=== PATIENT | male | born 1980 | race Caucasian/White ===

== ENCOUNTER 2018-02-03 06:36 | Emergency (ER) | payer BC ==
[2018-02-03] MEDS ORDERED: Sodium Chloride 0.9% 2.5 ML Syringe FLUSH PRN (07:08)
[2018-02-03] MEDS ORDERED: Ketorolac 30 MG/ML SDV IVPUSH ONE (07:08)
[2018-02-03] MEDS ORDERED: Sodium Chloride 0.9% 1,000 ML IV ONE (07:08)
[2018-02-03] MEDS ORDERED: Sodium Chloride 0.9% 10 ML Syringe FLUSH PRN (07:08)
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
[2018-02-03 07:40] LABS: CHLORIDE,CL 103 mmol/L (98-107); SODIUM,NA 141 mmol/L (136-148)
[2018-02-03] MEDS ORDERED: Iopamidol 755 MG/ML 500 ML Multipack Bottle IVPUSH STA (07:41)
[2018-02-03 09:38] VITALS: BP 130/82
--- NOTE | 2018-02-03 13:14 | CT ---
EXAM DATE: 02/03/18 PATIENT'S AGE: 37 Patient: EMILY ALBARADO Facility: [place], [place] Site . Site : [id number] Study: CT Abdomen/Pelvis WITH [id number]/26/2018 7:50:35 AM Ordering Physician: Doctor Newton Final Report: INDICATION: Left upper quadrant abdominal pain for 2 weeks. TECHNIQUE: CT of abdomen and pelvis performed after IV injection of 100 mL of Isovue-370. COMPARISON: CT 04/15/2016. FINDINGS: Mild opacity in the lung bases some which is hazy and some which is platelike mild lymph node prominence in the portacaval region. Small amount of fluid in the lower pelvis anteriorly likely related to prior surgery is stable. Small periumbilical hernia containing only fat is new. Remainder negative. Impression : No acute disease in abdomen or pelvis. Small new periumbilical hernia containing only fat. Small amount of stable fluid in the left lower pelvis anteriorly likely related to prior surgery or procedure. Please note that all CT scans at this facility use dose modulation, iterative reconstruction, and/or weight-based dosing when appropriate to reduce radiation dose to as low as reasonably achievable. Dictated by Maycol Green MD @ Feb 03 2018 7:59AM (Electronic Signature) Report Signed by Proxy. MTDD
== END 2018-02-03 08:40 | disposition home or self-care (01) ==
LOC: MW.ED 06:36
DX: K85.80 Other acute pancreatitis without necrosis or infection (principal); I10 Essential (primary) hypertension; Z79.899 Other long term (current) drug therapy
CPT/HCPCS: 36415; 74177; 80053; 81001; 82150; 83690; 85025; 96360; 99284; J7040; Q9967

== ENCOUNTER 2021-10-17 17:55 | Emergency (ER) | payer BC ==
--- NOTE | 2021-10-17 18:41 | EDM.PDOC ---
ED HPI GENERAL MEDICAL PROBLEM - General Chief Complaint: Abdominal Pain Stated Complaint: POSSIBLE HERNIA Time Seen by Provider: 10/17/21 18:26 Source of Information: Reports: Patient History Limitations: Reports: No Limitations - History of Present Illness INITIAL COMMENTS - FREE TEXT/NARRATIVE: HISTORY AND PHYSICAL: History of present illness: Patient is a 41-year-old male who presents to the emergency room with complaints of an umbilical hernia. He states he has noticed it "popped out before" but had gone in on its own shortly after. Today he noticed some umbilical pain and had noticed the hernia. States it did make him feel slightly nauseated. He did not attempt to manually push it back in. Decided to come to the emergency room for evaluation. Patient denies any fever, chills, headache, change in vision, syncope or near syncope. Denies any chest pain, back pain, shortness of breath or cough. Denies any vomiting, diarrhea, constipation or dysuria. Has not noted any blood in urine or stool. Patient has been eating and drinking appropriately. No recent travel or sick contacts. Review of systems: As per history of present illness and below otherwise all systems reviewed and negative. Past medical history: As per history of present illness and as reviewed below otherwise noncontributory. Surgical history: As per history of present illness and as reviewed below otherwise noncontributory. Social history: See social history for further information Family history: As per history of present illness and as reviewed below otherwise noncontributo ry. Physical exam: General: Well developed and well nourished. Alert and orientated x 3. Nontoxic in appearance and in no acute distress. Vital signs are stable and have been reviewed by me. Nursing notes were reviewed. HEENT: Atraumatic, normocephalic, pupils equal and reactive bilaterally, negative for conjunctival pallor or scleral icterus, mucous membranes moist, TMs normal bilaterally, throat clear, neck supple, nontender, trachea midline. No drooling or trismus noted. No meningeal signs. No hot potato voice noted. Lungs: Clear to auscultation bilaterally. No wheezes, rales, or rhonchi. Chest nontender. Normal work of breathing, no accessory muscles used. Heart: S1S2, regular rate and rhythm without overt murmur, gallops, or rubs. No JVD. No peripheral edema Abdomen: Soft, nondistended, tenderness noted at umbilical hernia, slight protrusion approximately 9 mm at the umbilicus. Skin is pink and warm. Normoactive bowel sounds. Negative for masses or costovertebral tenderness. Skin: Intact, warm, dry. No lesions or rashes noted. Hematologic: No petechiae or purpra. Mucosa appropriate color and normal nail bed color and refill. Extremities: Atraumatic, moves all extremities per self without difficulty or deficits, negative for cords or calf pain. Neurovascular unremarkable. Neuro: Awake, alert, oriented. Cranial nerves II through XII unremarkable. Cerebellum unremarkable. Motor and sensory unremarkable throughout. Exam nonfocal. Psychiatric: Mood and affect are appropriate. Normal thought process. Answering questions appropriately. Please note that the patient was seen and evaluated during the 2019 SARS-CoV-2 novel coronavirus pandemic period. Community viral transmission is ongoing at time of this encounter and the emergency department is operating under pandemic response procedures. Medical Decision Making: I did apply gentle pressure to the umbilical hernia and it immediately and easily reduced. Patient states he felt immediate relief. I did allow him to sit for 10 to 15 minutes. We did discuss doing lab work and/or imaging, at this time since his symptoms have resolved he would prefer to follow-up with general surgery as this is not needing to be immediately fixed. I did show him how to do this at home. I have talked with the patient about today's findings, in addition to providing specific details for plan of care. Reassessment at the ti me of disposition demonstrates that the patient is in no acute distress. If he is unable to reduce the hernia or he has worsening symptoms I would like him to return to the emergency room for reevaluation. The patient is stable for discharge, counseling was provided and we discussed in great detail signs and symptoms that would prompt them to return to the Emergency Department. Medication, follow up and supportive care measures were reviewed and discussed. Voices understanding and is agreeable to plan of care. Denies any further questions or concerns at this time. Diagnostics: None Therapeutics: Reduction Prescription: None Impression: Umbilical hernia, reduced Plan: 1. You were evaluated today on an emergent basis. Your umbilical hernia was easily really reduced. If this should happen in the future please gently apply pressure and work until it is reduced. If you are unable to reduce it yourself you do need to be evaluated immediately. I would like you to set up an appoint ment with general surgery as this should get repaired at some point. 2. Avoid any heavy straining or lifting that can cause the hernia. You can alternate Tylenol and ibuprofen as needed for pain and fever management. 3. If your symptoms should worsen, new symptoms develop or any of the signs and symptoms we discussed should arise please return to the emergency room or call 911 (if needed). Definitive disposition and diagnosis as appropriate pending reevaluation and review of above. Abdominal Pain Score (Numeric/FACES): 6 - Related Data Allergies Allergy/AdvReac Type Severity Reaction Status Date / Time No Known Allergies Allergy Verified 10/17/21 18:29 Home Meds: Home Meds Fenofibrate,Micronized [Fenofibrate] 134 mg PO DAILY 02/03/18 [History] Lisinopril 10 mg PO DAILY 02/03/18 [History] Past Medical History HEENT History: Reports: None Cardiovascular History: Reports: High Cholesterol, Hypertension Respiratory History: Reports: None Genitourinary History: Reports: None Musculoskeletal History: Reports: None Neurological History: Reports: None Psychiatric History: Reports: None Endocrine/Metabolic History: Reports: None Dermatologic History: Reports: None - Infectious Disease History Infectious Disease History: Reports: Chicken Pox - Past Surgical History GI Surgical History: Reports: Hernia, Abdominal, Hernia, Inguinal Male Surgical History: Reports: None Social & Family History - Family History Family Medical History: No Pertinent Family History - Tobacco Use Second Hand Smoke Exposure: No - Caffeine Use Caffeine Use: Reports: None - Recreational Drug Use Recreational Drug Use: No ED ROS GENERAL - Review of Systems Review Of Systems: Comprehensive ROS is negative, except as noted in HPI. ED EXAM, GI/ABD - Physical Exam Exam: See Below (See dictation) Course - Vital Signs Last Recorded V/S: Last Vital Signs Temp 97.6 F 10/17/21 18:25 Pulse 96 10/17/21 18:25 Resp 20 10/17/21 18:25 BP 151/85 H 10/17/21 18:25 Pulse Ox 96 10/17/21 18:25 Departure - Departure Time of Disposition: 18:40 Disposition: Home, Self-Care 01 Clinical Impression: Umbilical hernia - Discharge Information Instructions: Umbilical Hernia, Adult Forms: ED Department Discharge Additional Instructions: The following information is given to patients seen in the emergency department who are being discharged to home. This information is to outline your options for follow-up care. We provide all patients seen in our emergency department with a follow-up referral. The need for follow-up, as well as the timing and circumstances, are variable depending upon the specifics of your emergency department visit. If you don't have a primary care physician on staff, we will provide you with a referral. We always advise you to contact your personal physician following an emergency department visit to inform them of the circumstance of the visit and for follow-up with them and/or the need for any referrals to a consulting specialist. The emergency department will also refer you to a specialist when appropriate. This referral assures that you have the opportunity for follow-up care with a specialist. All of these measure are taken in an effort to provide you with optimal care, which includes your follow-up. Under all circumstances we always encourage you to contact your private physician who remains a resource for coordinating your care. When calling for follow-up care, please make the office aware that this follow-up is from your recent emergency room visit. If for any reason you are refused follow-up, please contact the [facility] Emergency Department at and asked to speak to the emergency department charge nurse. [facility] [address] [place] [address] [id number] [address] [address] Thank you for choosing the [facility] emergency department in [place] for your medical needs today. It was a pleasure caring for you. Today you were seen in the emergency department for umbilical hernia. 1. You were evaluated today on an emergent basis. Your umbilical hernia was easily really reduced. If this should happen in the future please gently apply pressure and work until it is reduced. If you are unable to reduce it yourself you do need to be evaluated immediately. I would like you to set up an appointment with general surgery as this should get repaired at some point. 2. Avoid any heavy straining or lifting that can cause the hernia. You can alternate Tylenol and ibuprofen as needed for pain and fever management. 3. If your symptoms should worsen, new symptoms develop or any of the signs and symptoms we discussed should arise please return to the emergency room or call 911 (if needed). Sepsis Event Note (ED) - Evaluation Sepsis Screening Result: No Definite Risk - Focused Exam Vital Signs: Vital Signs Temp Pulse Resp BP Pulse Ox 10/17/21 18:25 97.6 F 96 20 151/85 H 96
[2021-10-17 19:01] VITALS: BP 132/80; PULSE 78
== END 2021-10-17 18:54 | disposition home or self-care (01) ==
LOC: MW.ED 17:55
DX: K42.9 Umbilical hernia without obstruction or gangrene (principal); E78.00 Pure hypercholesterolemia, unspecified; I10 Essential (primary) hypertension; Z79.899 Other long term (current) drug therapy
CPT/HCPCS: 99283

== ENCOUNTER 2021-12-22 06:29 | Day surgery (SDC) | payer BC ==
[~2021-12-22 06:29] MED LIST: Albuterol 0.083% 2.5 MG/3 ML Neb Soln NEB PRN; HYDROmorphone 1 MG/ML Syringe IVPUSH PRN; Lactated Ringers 1,000 ML IV SCH; Metoclopramide 10 MG/2 ML SDV IVPUSH PRN; Morphine 4 MG/ML VIAL IVPUSH PRN; Naloxone 0.4 MG/ML SDV IVPUSH PRN; Ondansetron 4 MG/2 ML SDV IVPUSH PRN; ceFAZolin 2 GM in Premix Bag 1 BAG IV SCH; fentaNYL 100 MCG/2 ML SDV IVPUSH PRN
[2021-12-22] MEDS ORDERED: Propofol 200 MG/20 ML SDV ONE (06:47)
[2021-12-22] MEDS ORDERED: Midazolam 1 MG/ML 2 ML SDV ONE (06:48)
[2021-12-22] MEDS ORDERED: fentaNYL 250 MCG/5 ML SDV ONE (06:48)
[2021-12-22] MEDS ORDERED: Ondansetron 4 MG/2 ML SDV ONE (07:13)
[2021-12-22] MEDS ORDERED: Dexamethasone 4 MG/ML 5 ML MDV ONE (07:13)
[2021-12-22] MEDS ORDERED: Bupivacaine 0.5% 30 ML SDV ONE (07:20)
[2021-12-22] MEDS ORDERED: ceFAZolin 1 GM Vial ONE (07:20)
[2021-12-22] MEDS ORDERED: Ropivacaine 0.5% 5 MG/ML 30 ML SDV ONE (07:29)
[2021-12-22] MEDS ORDERED: Rocuronium Bromide 50 MG/5 ML Syringe ONE (07:33)
[2021-12-22] MEDS ORDERED: Sugammadex Sodium 200 MG/2 ML VIAL ONE (07:33)
[2021-12-22] MEDS ORDERED: Acetaminophen/HYDROcodone 325-5 MG Tab PO PRN (08:53)
[2021-12-22] MEDS ORDERED: Ondansetron 4 MG/2 ML SDV IVPUSH PRN (08:53)
[2021-12-22] MEDS ORDERED: Morphine 4 MG/ML VIAL IVPUSH PRN (08:53)
[2021-12-22] MEDS ORDERED: Lactated Ringers 1,000 ML IV SCH (09:00)
[2021-12-22 10:08] VITALS: BP 128/74; PULSE 78
== END 2021-12-22 10:56 | disposition home or self-care (01) ==
LOC: MW.SDS 06:29
PROVIDERS: ATTEND Surgery
DX: K42.0 Umbilical hernia with obstruction, without gangrene (principal); I10 Essential (primary) hypertension; E78.00 Pure hypercholesterolemia, unspecified; G47.33 Obstructive sleep apnea (adult) (pediatric); E55.9 Vitamin D deficiency, unspecified; Z72.89 Other problems related to lifestyle; Z79.899 Other long term (current) drug therapy; Z98.890 Other specified postprocedural states; Z87.891 Personal history of nicotine dependence; Z91.018 Allergy to other foods
CPT/HCPCS: 49587; A9270; J0131; J0690; J1100; J2250; J2704; J2795; J3010; J3490; J7120; 00750; 64488; J2405

== ENCOUNTER 2023-03-13 02:11 | Emergency (ER) | payer BC ==
[2023-03-13] MEDS ORDERED: Erythromycin Base 0.5% Ophth Oint 1 GM Tube EYEBOTH ONE (02:28)
[2023-03-13 02:41] VITALS: BP 147/88; PULSE 71
== END 2023-03-13 02:40 | disposition home or self-care (01) ==
LOC: MW.ED 02:11
DX: H10.9 Unspecified conjunctivitis (principal); E78.00 Pure hypercholesterolemia, unspecified; I10 Essential (primary) hypertension; Z91.018 Allergy to other foods; Z79.899 Other long term (current) drug therapy
CPT/HCPCS: 99282; A9270

== ENCOUNTER 2023-11-08 06:29 | Day surgery (SDC) | payer BC ==
[~2023-11-08 06:29] MED LIST changes: -Albuterol 0.083% 2.5 MG/3 ML Neb Soln NEB PRN; -HYDROmorphone 1 MG/ML Syringe IVPUSH PRN; -Metoclopramide 10 MG/2 ML SDV IVPUSH PRN; -Morphine 4 MG/ML VIAL IVPUSH PRN; -Naloxone 0.4 MG/ML SDV IVPUSH PRN; -Ondansetron 4 MG/2 ML SDV IVPUSH PRN; -ceFAZolin 2 GM in Premix Bag 1 BAG IV SCH; +ceFAZolin 2 GM in Sodium Chloride 0.9% 50 ML IV ONE; -fentaNYL 100 MCG/2 ML SDV IVPUSH PRN
[2023-11-08] MEDS ORDERED: Propofol 200 MG/20 ML SDV ONE (07:22)
[2023-11-08] MEDS ORDERED: fentaNYL 100 MCG/2 ML SDV ONE (07:22)
[2023-11-08] MEDS ORDERED: dexmedeTOMIDine HCl 200 MCG/2 ML SDV ONE (07:22)
[2023-11-08] MEDS ORDERED: Water For Injection, Sterile 20 ML ONE (07:22)
[2023-11-08] MEDS ORDERED: Bupivacaine 0.25% 30 ML SDV ONE (07:34)
[2023-11-08] MEDS ORDERED: Bupivacaine 0.5%/EPINEPHrine 1:200,000 30 ML SDV ONE (07:34)
[2023-11-08] MEDS ORDERED: Bupivacaine 0.5% 30 ML SDV ONE (07:36)
[2023-11-08] MEDS ORDERED: Ondansetron 4 MG/2 ML SDV IVPUSH PRN (07:45)
[2023-11-08] MEDS ORDERED: droPERidol 5 MG/2 ML SDV IVPUSH PRN (07:45)
[2023-11-08] MEDS ORDERED: Metoclopramide 10 MG/2 ML SDV IVPUSH PRN (07:45)
[2023-11-08] MEDS ORDERED: Morphine 2 MG/ML SYRINGE IVPUSH PRN (07:45)
[2023-11-08] MEDS ORDERED: Albuterol 0.083% 2.5 MG/3 ML Neb Soln NEB PRN (07:45)
[2023-11-08] MEDS ORDERED: Naloxone 0.4 MG/ML SDV IVPUSH PRN (07:45)
[2023-11-08] MEDS ORDERED: HYDROmorphone 1 MG/ML Syringe IVPUSH PRN (07:45)
[2023-11-08] MEDS ORDERED: fentaNYL 50 MCG/ML SDV IVPUSH PRN (07:45)
[2023-11-08] MEDS ORDERED: Ondansetron 4 MG/2 ML SDV ONE (08:08)
[2023-11-08] MEDS ORDERED: Dexamethasone 4 MG/ML 5 ML MDV ONE (08:08)
[2023-11-08] MEDS ORDERED: ceFAZolin 2 GM Vial ONE (08:14)
[2023-11-08] MEDS ORDERED: ePHEDrine 50 MG/ML SDV ONE (08:29)
[2023-11-08] MEDS ORDERED: Ketorolac 30 MG/ML SDV ONE (09:00)
[2023-11-08] MEDS ORDERED: Acetaminophen/HYDROcodone 325-5 MG Tab PO PRN (09:20)
[2023-11-08] MEDS ORDERED: Lactated Ringers 1,000 ML IV SCH (09:30)
[2023-11-08 10:23] VITALS: BP 132/84; PULSE 69
== END 2023-11-08 10:07 | disposition home or self-care (01) ==
LOC: MW.SDS 06:29
PROVIDERS: ATTEND Surgery
DX: K42.0 Umbilical hernia with obstruction, without gangrene (principal); G47.33 Obstructive sleep apnea (adult) (pediatric); I10 Essential (primary) hypertension; E78.2 Mixed hyperlipidemia; Z87.891 Personal history of nicotine dependence; Z98.890 Other specified postprocedural states; Z91.018 Allergy to other foods; Z91.09 Other allergy status, other than to drugs and biological substances
CPT/HCPCS: 49614; 64486; J0665; J0690; J1100; J1885; J2405; J2704; J3010; J7120; J3490

== ENCOUNTER 2024-06-21 07:07 | Day surgery (SDC) | payer BC ==
[~2024-06-21 07:07] MED LIST changes: +Acetaminophen 1,000 MG in Premix Bag 1 BAG IV SCH; -Lactated Ringers 1,000 ML IV SCH
[2024-06-21] MEDS ORDERED: Bupivacaine 0.5% 30 ML SDV ONE (07:37)
[2024-06-21] MEDS: Lactated Ringers 1,000 ML IV SCH (07:50)
[2024-06-21] MEDS ORDERED: Ropivacaine 0.5% 5 MG/ML 30 ML SDV ONE (07:59)
[2024-06-21] MEDS ORDERED: Bupivacaine 0.25% 30 ML SDV ONE (07:59)
[2024-06-21] MEDS ORDERED: Propofol 200 MG/20 ML SDV ONE (08:01)
[2024-06-21] MEDS ORDERED: Midazolam 1 MG/ML 2 ML SDV ONE (08:01)
[2024-06-21] MEDS ORDERED: Lidocaine 2% 5 ML SDV ONE (08:01)
[2024-06-21] MEDS ORDERED: dexmedeTOMIDine HCl 200 MCG/2 ML SDV ONE (08:02)
[2024-06-21] MEDS ORDERED: Rocuronium Bromide 50 MG/5 ML Syringe ONE ×2 (08:02→10:21)
[2024-06-21] MEDS ORDERED: Water For Injection, Sterile 20 ML ONE (08:02)
[2024-06-21] MEDS ORDERED: fentaNYL 100 MCG/2 ML SDV ONE (08:02)
[2024-06-21] MEDS ORDERED: Morphine 10 MG/ML SDV ONE (08:04)
[2024-06-21] MEDS: Pregabalin 75 MG Cap PO SCH (08:38)
[2024-06-21] MEDS ORDERED: ceFAZolin 1 GM Vial ONE ×2 (09:33→09:54)
[2024-06-21] MEDS ORDERED: Sugammadex Sodium 200 MG/2 ML VIAL IV ONE (09:41)
[2024-06-21] MEDS ORDERED: Ondansetron 4 MG/2 ML SDV ONE (09:41)
[2024-06-21] MEDS ORDERED: Succinylcholine/Sod PF 100 MG/5 ML SYRINGE IV ONE (09:41)
[2024-06-21] MEDS ORDERED: Ketorolac 30 MG/ML SDV ONE (09:41)
[2024-06-21] MEDS ORDERED: Dexamethasone 4 MG/ML 5 ML MDV ONE (09:41)
[2024-06-21] MEDS ORDERED: Phenylephrine HCl In 0.9% NaCl 1 MG/10 ML Syringe ONE (09:45)
[2024-06-21] MEDS ORDERED: ePHEDrine 50 MG/ML SDV ONE (09:48)
[2024-06-21] MEDS ORDERED: HYDROmorphone 1 MG/ML Syringe IVPUSH PRN (11:03)
[2024-06-21] MEDS ORDERED: Ondansetron 4 MG/2 ML SDV IVPUSH PRN (11:03)
[2024-06-21] MEDS ORDERED: Morphine 2 MG/ML SYRINGE IVPUSH PRN (11:03)
[2024-06-21] MEDS ORDERED: Naloxone 0.4 MG/ML SDV IVPUSH PRN (11:03)
[2024-06-21] MEDS ORDERED: Metoclopramide 10 MG/2 ML SDV IVPUSH PRN (11:03)
[2024-06-21] MEDS ORDERED: Albuterol 0.083% 2.5 MG/3 ML Neb Soln NEB PRN (11:03)
[2024-06-21] MEDS ORDERED: Phenylephrine HCl In 0.9% NaCl 1 MG/10 ML Syringe IVPUSH PRN (11:03)
[2024-06-21] MEDS: fentaNYL 50 MCG/ML SDV IVPUSH PRN (11:48)
[2024-06-21 13:15] VITALS: BP 133/86; PULSE 82
== END 2024-06-21 13:04 | disposition home or self-care (01) ==
LOC: MW.SDS 07:07
PROVIDERS: ATTEND Surgery
DX: K42.9 Umbilical hernia without obstruction or gangrene (principal); S31.105A Unspecified open wound of abdominal wall, periumbilic region without penetration into peritoneal cavity, initial encounter; L90.5 Scar conditions and fibrosis of skin; I10 Essential (primary) hypertension; G47.30 Sleep apnea, unspecified; E78.00 Pure hypercholesterolemia, unspecified; F17.210 Nicotine dependence, cigarettes, uncomplicated; Z91.018 Allergy to other foods; Z91.09 Other allergy status, other than to drugs and biological substances; Z79.899 Other long term (current) drug therapy
CPT/HCPCS: 49613; A9270; J0330; J0665; J0690; J1100; J1885; J2250; J2270; J2704; J2795; J3010; J3490; J7120; 00840; 64488; J2371; J2405

== ENCOUNTER 2024-08-01 08:06 | Emergency (ER) | payer BC ==
[2024-08-01] MEDS ORDERED: Sodium Chloride 0.9% 2.5 ML Syringe FLUSH PRN (08:53)
[2024-08-01] MEDS ORDERED: Sodium Chloride 0.9% 10 ML Syringe FLUSH PRN (08:53)
[2024-08-01 09:01] LABS: BASOPHILS ABSOLUTE AUTO 0.12 K/uL (0.00-0.20); BASOPHILS PERCENT AUTO 1.4 % (0.0-1.0); EOSINOPHILS ABSOLUTE AUTO 0.17 K/uL (0.00-0.45); EOSINOPHILS PERCENT AUTO 1.9 % (0.0-6.0); HEMATOCRIT 43.2 % (42.0-52.0); HEMOGLOBIN 15.2 g/dL (14.0-18.0); IMMATURE GRAN ABSOLUTE AUTO 0.02 K/uL (0.00-0.05); IMMATURE GRAN PERCENT AUTO 0.2 % (0.0-0.4); LYMPHOCYTES ABSOLUTE AUTO 2.25 K/uL (1.00-4.80); LYMPHOCYTES PERCENT AUTO 25.6 % (24.0-44.0); MEAN CORPUSCULAR HEMOGLOBIN 30.6 pg (28.0-32.0); MEAN CORPUSCULAR HGB CONC 35.2 g/dL (32.0-36.0); MEAN CORPUSCULAR VOLUME 86.9 fL (83.0-99.0); MEAN PLATELET VOLUME 9.6 fL (9.4-12.4); MONOCYTES ABSOLUTE AUTO 0.59 K/uL (0.00-0.80); MONOCYTES PERCENT AUTO 6.7 % (0.0-8.0); NEUTROPHILS ABSOLUTE AUTO 5.65 K/uL (1.80-7.70); NEUTROPHILS PERCENT AUTO 64.2 % (41.0-71.0); PLATELET COUNT,PLT 331 K/uL (150-400); RED BLOOD CELL COUNT 4.97 M/uL (4.52-5.90)
[2024-08-01 09:06] LABS: INR 1.01 (0.86-1.11)
[2024-08-01 09:11] LABS: A/G RATIO 1.3 (0.9-1.6); ALANINE AMINOTRANSFERASE,ALT 151 IU/L (14-63); ALBUMIN 4.4 g/dL (3.4-5.0); ALKALINE PHOSPHATASE 66 U/L (46-116); ASPARTATE AMNIOTRANSFERASE,AST 48 IU/L (15-37); BILIRUBIN TOTAL 0.8 mg/dL (0.2-1.0); BLOOD UREA NITROGEN,BUN 12 mg/dL (7.0-18.0); CALCIUM 9.4 mg/dL (8.5-10.1); CHLORIDE,CL 100 mmol/L (98-107); GLUCOSE RANDOM 201 mg/dL (74-106); LIPASE 104 U/L (16-77); POTASSIUM,K 3.8 mmol/L (3.5-5.1); PROTEIN TOTAL,TP 7.7 g/dL (6.4-8.2); SODIUM,NA 136 mmol/L (136-148)
[2024-08-01 09:14] LABS: ESTIMATED GFR 97 mL/min (>60)
[2024-08-01 10:29] LABS: AMPHETAMINES SCREEN, URINE NEGATIVE (CUTOFF=500); BARBITURATE SCREEN,URINE NEGATIVE (CUTOFF=200); BENZODIAZEPINES SCREEN,URINE NEGATIVE (CUTOFF=150); BUPRENORPHINE SCREEN,URINE NEGATIVE (CUTOFF=10); METHADONE SCREEN, URINE NEGATIVE (CUTOFF=200); METHAMPHETAMINES SCREEN, URINE NEGATIVE (CUTOFF=500); OXYCODONE SCREEN,URINE NEGATIVE (CUT0FF=100); PCP SCREEN,URINE NEGATIVE (CUTOFF=25); THC SCREEN,URINE 20 NG/ML NEGATIVE (CUTOFF=50)
[2024-08-01 10:34] LABS: CORONAVIRUS COVID-19 NAA NEGATIVE (NEGATIVE); INFLUENZA A NAA NEGATIVE (NEGATIVE); INFLUENZA B NAA NEGATIVE (NEGATIVE); RESPIRATORY SYNCYTIAL VIR NAA NEGATIVE (NEGATIVE)
[2024-08-01] MEDS: Ketorolac 30 MG/ML SDV IVPUSH ONE (11:04)
[2024-08-01 11:27] VITALS: BP 149/82; PULSE 81
== END 2024-08-01 11:29 | disposition home or self-care (01) ==
LOC: MW.ED 08:06
DX: I10 Essential (primary) hypertension (principal); R51.9 Headache, unspecified; R07.9 Chest pain, unspecified; Z79.899 Other long term (current) drug therapy; Z91.018 Allergy to other foods; Z91.048 Other nonmedicinal substance allergy status
CPT/HCPCS: 0241U; 36415; 70450; 71045; 80053; 80305; 83690; 84484; 85025; 85610; 96374; 99285; J1885